=== PATIENT | female | born 1995 ===

== ENCOUNTER 2017-11-17 01:10 | Inpatient (IN) | payer OTHER ==
[~2017-11-17 01:10] MED LIST: DEXTROSE 5%-LACTATED RINGERS 1,000 ML IV SCH
[2017-11-17 02:30] LABS: BASO % 0.5 % (0-2.0); EOS % 1.5 % (0-4.5); MCH 30.4 pg (25.7-33.7); MCHC 33.4 g/dl (32.0-36.0); MEAN CELL VOLUME 91.2 fl (80-96); NEUT % 75.1 % (42.8-82.8); PLATELET COUNT 185 K/MM3 (134-434); RDW 13.5 % (11.6-15.6); WHITE BLOOD COUNT 10.8 K/mm3 (4.0-10.0)
[2017-11-17 02:42] VITALS: BMI 31.4
[2017-11-17] MEDS ORDERED: BUTORPHANOL TARTRATE 1 MG/ML VIAL ONE (02:43)
[2017-11-17] MEDS ORDERED: PROMETHAZINE HCL 25 MG/1 ML VIAL ONE (02:43)
[2017-11-17 02:48] LABS: INR 0.92 (0.82-1.09); PROTHROMBIN TIME (PATIENT) 10.4 SEC (9.98-11.88)
[2017-11-17] MEDS ORDERED: BUTORPHANOL TARTRATE 1 MG/ML VIAL IVPUSH ONE (02:50)
[2017-11-17] MEDS ORDERED: PROMETHAZINE HCL 25 MG/1 ML VIAL IVPUSH ONE (02:50)
[2017-11-17 02:51] LABS: ACTIVATED PTT 28.9 SECONDS (26.9-34.4)
[2017-11-17 02:55] LABS: ANION GAP 12 (8-16); CALCIUM 8.8 mg/dL (8.5-10.1); CO2 21 mmol/L (21-32); CREATININE 0.5 mg/dL (0.55-1.02); GLUCOSE,RANDOM 82 mg/dL (74-106)
[2017-11-17] MEDS: OXYTOCIN 20 UNITS in 0.9% NS 20 UNIT/1,000 ML INFUS.BAG IV SCH ×2 (06:00→08:43)
[2017-11-17] MEDS ORDERED: BENZOCAINE 28 GM HEMORRHOIDAL OINTMENT TP PRN (06:23)
[2017-11-17] MEDS ORDERED: BISACODYL 10 MG SUPP.RECT RC PRN (06:23)
[2017-11-17] MEDS ORDERED: WITCH HAZEL 50% (TUCKS) 40 PAD/JAR PAD TP PRN (06:23)
[2017-11-17] MEDS ORDERED: METHYLERGONOVINE MALEATE 0.2 MG/1 ML AMP IM PRN (06:23)
[2017-11-17] MEDS ORDERED: BENZOCAINE 20% 57 GM BOTTLE TP PRN (06:23)
[2017-11-17] MEDS ORDERED: oxyCODONE HCL 5 MG TABLET PO PRN (06:23)
--- NOTE | 2017-11-17 06:35 | HP ---
Past Medical History - Primary Care Physician PCP:: Juani Joyner - Admission Chief Complaint: 22 yrs 39.3/7 weeks onset LP since 11.00PM 11/16/17 in active labor History of Present Illness: pnc at , [facility] . 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 Weeks Gestation by Dates: 39.3 ...EDC by Dates: 11/21/17 ...EDC by Sono: 11/21/17 Heme/Onc: No: Anemia Infectious Disease: No: AIDS, HIV, STD's, Tuberculosis Psych: No: Addictions, Anxiety, Bipolar, Depression, Schizophrenia - Past Surgical History Past Surgical History: Yes: (07/04/12 primary LFTC?S), Tonsillectomy Hx Myomectomy: No Hx Transabdominal Cerclage: No - Smoking History Smoking history: Never smoked Have you smoked in the past 12 months: No Aproximately how many cigarettes per day: 0 - Alcohol/Substance Use Hx Alcohol Use: No History of Substance Use: reports: None - Social History History of Recent Travel: Yes (04/2017 in [place] ) Home Medications - Allergies Allergies/Adverse Reactions: Allergies Allergy/AdvReac Type Severity Reaction Status Date / Time No Known Allergies Allergy Verified 11/17/17 02:27 - Home Medications Home Medications: Ambulatory Orders Vits W-Ca,Fe,FA(<1Mg) [] 1 each PO DAILY 07/04/12 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 - Maternity Vital Signs: Vital Signs Temperature 97.8 F 11/17/17 05:00 Pulse Rate 99 H 11/17/17 05:00 Respiratory Rate 20 11/17/17 05:00 Blood Pressure 120/73 11/17/17 05:00 O2 Sat by Pulse Oximetry (%) Constitutional: Yes: Well Nourished, Severe Distress Eyes: Yes: WNL HENT: Yes: WNL, Normocephalic Neck: Yes: WNL Cardiovascular: Yes: WNL, Regular Rate and Rhythm Lungs: Clear to auscultation Breast(s): Yes: WNL - Abdominal Exam/OB Fundal Height: 38 Number of Fetuses: Single Presentation: Vertex Contractions: Yes Regularity: Regular Intensity: Mod/Strong Monitor Mode: External Heart Rate (range): 130 Heart Rate Location: [facility] Category: I Accelerations: Uniform Decelerations: None - Vaginal Exam/OB Vaginal Bleediing: No Speculum Exam: No Dilatation (cm): 9 Effacement (%): 100 Amniotic Membrane Status: Ruptured (AROM clear scanty done at 5.45 AM) Amniotic Fluid: Yes: Clear Presentation: Vertex/Position Station: 0 (0/+1 station) - 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 Musculoskeletal: Yes: WNL Extremities: Yes: WNL. No: Calf Tenderness Edema: No Deep Tendon Reflex Grade: Normal +2 ...Motor Strength: WNL Psychiatric: Yes: WNL, Alert - Labs Lab Results: CBC, BMP 11/17/17 02:05 11/17/17 02:05 Problem List - Problems (1) with 39 completed weeks gestation Code(s): Z3A.39 - 39 WEEKS GESTATION OF (2) Labor established Code(s): WFZ3807 - (3) Previous delivery affecting Code(s): O34.219 - MATERNAL CARE FOR UNSP TYPE SCAR FROM PREVIOUS DEL Assessment/Plan 22 yrs , , h/o previous c/section & 39.3/7 weeks amitted in active labor , GBS neg 2.50 AM Stadol 1 Mg + Phenergan 25 mg iv stat was given for labor analgesia 5.45 aM AROM 5.50 AM Fully Dilated 5.54AM Baby Boy 6.00 AM Placenta
--- NOTE | 2017-11-17 06:54 | PN ---
Delivery - Delivery Vaginal Delivery: No Problems, V-Alejo Type of Anesthesia: Local Episiotomy/Laceration: 1st degree (sutured under Local anesthesia with Chr Catgut #2/0) EBL (cc): 350 Delivery, Single - Stages of Labor Date 1st Stage Initiatied: 11/16/17 Time 1st Stage Initiated: 23:00 Date 2nd Stage Initiated: 11/17/17 Time 2nd Stage Initiated: 05:50 Date of Delivery: 11/17/17 Time of Delivery: 05:54 Date Placenta Delivered: 11/17/17 Time Placenta Delivered: 06:00 Placenta: Yes: Spontaneous, Uterine Exploration (uterus intact) - Condition of Paper Control Clerk/Electronic Pagination System Operator Present: No Infant Gender: Male Weight: 7 lb 8 oz Position: Left, OA Total Hours ROM (Hrs/Mins): 0hr 09min - 1 Minute Total Score: 9 5 Minutes Total Score: 9 - Feeding Plan Initial Plan: Elected not to breastfeed exclusively throughout hospitalization Remarks - Remarks Remarks: 22 yrs , , 39.3/7 weeks, previous c/section followed by admitted in active labor PNC at [address] [place] [address] . Gbs neg Stadol + phenrgan one dose given for labor analgesia Intrapartum course uneventful
[2017-11-17] MEDS ORDERED: IBUPROFEN 600 MG TABLET (FP) PO ONE (07:14)
[2017-11-17] MEDS: IBUPROFEN 600 MG TABLET (FP) PO PRN ×2 (07:20→14:54)
[2017-11-17] MEDS ORDERED: OXYTOCIN 20 UNITS in 0.9% NS 20 UNIT/1,000 ML INFUS.BAG IV ONE (07:59)
[2017-11-17] MEDS: FERROUS SO4 325 MG TABLET (FP) PO SCH ×2 (08:30→17:17)
[2017-11-17] MEDS: PRENATAL VITAMINS W/ FOLIC ACID TABLET (FP) PO SCH (10:57)
[2017-11-17] MEDS: ACETAMINOPHEN 325 MG TABLET (FP) PO PRN (14:55)
[2017-11-18] MEDS: ACETAMINOPHEN 325 MG TABLET (FP) PO PRN (02:26)
[2017-11-18] MEDS: IBUPROFEN 600 MG TABLET (FP) PO PRN (02:26)
[2017-11-18 08:08] LABS: BASO % 0.4 % (0-2.0); EOS % 3.5 % (0-4.5); MCH 30.5 pg (25.7-33.7); MEAN CELL VOLUME 92.6 fl (80-96); MEAN PLT VOLUME 10.5 fl (7.5-11.1); NEUT % 54.2 % (42.8-82.8); PLATELET COUNT 165 K/MM3 (134-434); RDW 13.6 % (11.6-15.6); WHITE BLOOD COUNT 9.1 K/mm3 (4.0-10.0)
[2017-11-18] MEDS: FERROUS SO4 325 MG TABLET (FP) PO SCH ×2 (09:07→17:51)
[2017-11-18] MEDS: PRENATAL VITAMINS W/ FOLIC ACID TABLET (FP) PO SCH (09:07)
[2017-11-18] MEDS ORDERED: DIPHTH,PERTUSS(ACELL),TET 0.5 ML DISP.SYRIN IM ONE (10:00)
--- NOTE | 2017-11-18 12:01 | DS ---
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 Vital Signs: Vital Signs Temperature 98.0 F 11/18/17 06:00 Pulse Rate 79 11/18/17 06:00 Respiratory Rate 20 11/18/17 06:00 Blood Pressure 107/60 11/18/17 06:00 O2 Sat by Pulse Oximetry (%) Constitutional: Yes: Well Nourished, Other (cramps , scale 4-5) Eyes: Yes: WNL HENT: Yes: WNL, Normocephalic Neck: Yes: WNL Cardiovascular: Yes: WNL, Regular Rate and Rhythm Respiratory: Yes: WNL Gastrointestinal: Yes: WNL, Normal Bowel Sounds ....Post : Yes: Uterus firm, Uterus non-tender, Moderate lochia rubra ( perineum intact) Breast(s): Yes: WNL (BF, breast not engorged) Musculoskeletal: Yes: WNL Extremities: Yes: WNL. No: Calf Tenderness Edema: Yes Edema: LLE: Trace, RLE: Trace Integumentary: Yes: WNL Neurological: Yes: WNL ...Motor Strength: WNL Psychiatric: Yes: WNL Labs: CBC, BMP 11/18/17 06:00 11/17/17 02:05 Delivery - Delivery Vaginal Delivery: No Problems, V-Alejo Type of Anesthesia: Local Episiotomy/Laceration: 1st degree (sutured under Local anesthesia with Chr Catgut #2/0) EBL (cc): 350 Delivery, Single - Stages of Labor Date 1st Stage Initiatied: 11/16/17 Time 1st Stage Initiated: 23:00 Date 2nd Stage Initiated: 11/17/17 Time 2nd Stage Initiated: 05:50 Date of Delivery: 11/17/17 Time of Delivery: 05:54 Time Placenta Delivered: 06:00 Placenta: Yes: Spontaneous, Uterine Exploration (uterus intact) - Condition of Systems Integrator/Electrician Wiring Present: No Infant Gender: Male Weight: 7 lb 8 oz Position: Left, OA Total Hours ROM (Hrs/Mins): 0hr 09min - 1 Minute Total Score: 9 5 Minutes Total Score: 9 - Feeding Plan Initial Plan: Elected not to breastfeed exclusively throughout hospitalization Remarks - Remarks Remarks: 22 yrs , , 39.3/7 weeks, previous c/section followed by admitted in active labor PNC at [address] [place] [address] . Gbs neg Stadol + phenrgan one dose given for labor analgesia Intrapartum course uneventful . pp course uneventful. discharge on 11/19/17 Discharge Summary Reason For Visit: LABOR ADMIT Current Active Problems Labor established (Acute) with 39 completed weeks gestation (Acute) Previous delivery affecting (Acute) , delivered, current hospitalization (Acute) Condition: Stable - Instructions Diet, Activity, Other Instructions: Post Instructions DIET: Continue good diet high in protein, calcium, and iron rich foods. Drink at least eight (8) glasses of water daily in addition to other fluids. ___ Regular diet MEDICATIONS: Continue vitamins and iron as previously directed. Motrin and Tylenol may be taken for minor discomfort. ACTIVITY: Mild to moderate exercise may be started in two (2) weeks. Take frequent rest periods. Resume normal activity after six (6) week check up. WOUND CARE OF OPERATIVE SITE: Continue use of perineal bottle until vaginal discharge stops. Keep area clean. Shower daily. Keep abdominal wound dry. Report any drainage or redness to physician. Tub baths, tampons and douches are not permitted for [address] Breast feeding & or Bottle feeding BREAST CARE: (For those that are not breast feeding): If engorgement occurs: Wear tight fitting bra. Take Tylenol or Motrin for pain. Apply cold packs (ice in bags to each breast ) FAMILY PLANNING: There are many control alternatives to pursue and they should be discussed at your first office visit. You may resume sexual activity after your six (6) week check up. (Remember, breast feeding is not a contraceptive) NEXT PHYSICIAN APPOINTMENT: Be certain to call for a six (6) week appointment, unless otherwise directed. Call Clinic or got to Emergency Dept if you have any of the following: Heavy vaginal bleeding Painful urination Leg pain Unusual odor noted to vaginal bleeding High fever Red streaking noted on breast Referrals: Juani Joyner MD [Staff Physician] - Disposition: HOME - Home Medications Comprehensive Discharge Medication List: Ambulatory Orders Vits W-Ca,Fe,FA(<1Mg) [] 1 each PO DAILY 07/04/12 Acetaminophen [Tylenol .Regular Strength -] 650 mg PO Q3H PRN tablet 11/17/17 Ferrous Sulfate [Feosol] 325 mg PO BIDWM tab 11/17/17 Ibuprofen [Motrin -] 200 mg PO Q4H PRN tablet 11/17/17 Vitamins (Sjr) - 1 tab PO DAILY tablet 11/17/17
[2017-11-18] MEDS ORDERED: SENNOSIDES/DOCUSATE COMBO (SENNA PLUS) TABLET (UD) PO PRN (22:00)
--- NOTE | 2017-11-19 08:33 | PN ---
Progress Note (short form) - Note Progress Note: ppd 2 no c/o voids ok,no excess vaginal bleeding CBC, BMP 11/18/17 06:00 11/17/17 02:05 Last Vital Signs Temp Pulse Resp BP Pulse Ox 97.9 F 83 20 116/71 11/18/17 22:00 11/18/17 22:00 11/18/17 22:00 11/18/17 22:00 abdomen soft, no distension, no cva uterus firm, non tender lochia mild no calf tenderness plan ambulate ,d/c home, rtc 4 weeks
[2017-11-19] MEDS: PRENATAL VITAMINS W/ FOLIC ACID TABLET (FP) PO SCH (10:15)
[2017-11-19] MEDS: FERROUS SO4 325 MG TABLET (FP) PO SCH (10:15)
[2017-11-19 11:50] VITALS: BP 111/62; PULSE 73; TEMP 98
== END 2017-11-19 16:05 | disposition home or self-care (01) | DRG 560 ==
LOC: JLDR 01:10 → J3W 09:15
PROVIDERS: ADMIT Obstetrics & Gynecology; ATTEND Obstetrics & Gynecology
PROC: 10E0XZZ Delivery of Products of Conception, External Approach (ICD-10-PCS; principal; 2017-11-17)
PROC: 0HQ9XZZ Repair Perineum Skin, External Approach (ICD-10-PCS; 2017-11-17)
DX: O34.211 Maternal care for low transverse scar from previous cesarean delivery (principal); O70.0 First degree perineal laceration during delivery; Z3A.39 39 weeks gestation of pregnancy; Z37.0 Single live birth
CPT/HCPCS: 36415; 59409; 80048; 85025; 85610; 85730; 86593; 86850; 86900; 86901; 90715